=== PATIENT | female | born 1970 | race Caucasian/White ===

== ENCOUNTER 2017-10-26 05:11 | Inpatient (IN) | END 2017-10-31 15:40 | disposition home or self-care (01) | DRG 638 ==

== ENCOUNTER 2018-11-29 21:05 | Emergency (ER) | payer BC ==
[~2018-11-29] VITALS: Wt 60.9 kg
[~2018-11-29 21:05] MED LIST: ATOR20TA38 PO; BLOO-432 MC; LANC1KIT83 MC; LANT3I SC; LEVE750T70 PO; METF500T PO; NEED-135 MC; NOVO3I SC; PHEN100C PO
[2018-11-29 21:47] VITALS: BP 199/79; PULSE 113; RESP 18
[2018-11-30] MEDS ORDERED: NPH10OT RIGHT EAR (00:41)
[2018-11-30] MEDS ORDERED: AZIT250T PO (00:41)
--- NOTE | 2018-11-30 00:43 | ERD ---
ER Documentation Chief Complaint Chief Complaint R EAR PAIN, COUGH X'S 1 DAY HPI 48-year-old female is here with sore throat cough as well as runny nose and right ear pain. Cough is been going on for 3 days but ear pain just began today. Also subjective fever at home. She has been taking Tylenol but it did not help. No bleeding or drainage from the ear. No nausea or vomiting. ROS All systems reviewed and are negative except as per history of present illness. Medications Home Meds Active Scripts Neomycin/Polymyxin/Hydrocort* (Cortisporin* Otic) 10 Ml Susp, 4 DROP RIGHT EAR QID for 7 Days, EA Prov:GENARO BOLTON PA-C 11/30/18 Azithromycin* (Zithromax*) 250 Mg Tablet, 250 MG PO .SolePACK DIRECTED, #6 TAB TAKE 500 MG (2 TABS) THE FIRST DAY THEN 250 MG (1 TAB) DAYS 2-5 Prov:GENARO BOLTON PA-C 11/30/18 Atorvastatin Calcium* (Atorvastatin Calcium*) 20 Mg Tablet, 20 MG PO QHS, #30 TAB Prov:IGNACIO TONY NP 10/31/17 Lancing Device/Lancets (ACCU-CHEK FASTCLIX LANCET KIT) 1 Each Kit, 1 EACH MC, #100 Prov:IGNACIO TONY NP 10/31/17 Blood Glucose Strips-Dispmeter (CampaignerCRMck Blood Glucose System) 1 Each Kit, 1 EACH MC, #100 Prov:IGNACIO TONY NP 10/31/17 [place], Insulin Disposable ([place] Pen Needle) 1 Each Dis.needle, 1 EACH MC, #100 Prov:IGNACIO TONY NP 10/31/17 Metformin Hcl (Glucophage) 500 Mg Tablet, 500 MG PO BID WITH MEALS for 30 Days, #60 TAB Prov:IGNACIO TONY NP 10/31/17 Insulin Glargine* (Lantus*) 100 Unit/Ml Soln, 15 UNIT SC DAILY@20 for 30 Days, #1 VIAL Prov:IGNACIO TONY NP 10/31/17 Insulin Aspart* (Novolog Insulin Pen*) 100 Unit/Ml Soln, 5 UNIT SC WITH MEALS for 30 Days, #1 VIAL Prov:IGNACIO TONY NP 10/31/17 Phenytoin* Sodium Extended (Dilantin*) 100 Mg Capsule, 300 MG PO HS, #30 CAP Prov:IGNACIO TONY [employer] SPECIALIST 10/31/17 Levetiracetam* (Keppra*) 750 Mg Tablet, 750 MG PO BID, #60 TAB Prov:IGNACIO TONY [employer] SPECIALIST 10/31/17 Allergies Allergies: Coded Allergies: No Known Allergy (Unverified , 10/26/17) PMhx/Soc History of Surgery: Yes ( x2) Anesthesia Reaction: No Hx Neurological Disorder: No Hx Respiratory Disorders: No Hx Cardiac Disorders: No Hx Psychiatric Problems: No (PT & SISTER DENY) Hx Miscellaneous Medical Probl: No Hx Alcohol Use: No Hx Substance Use: No Hx Tobacco Use: No FmHx Family History: No diabetes Physical Exam Vitals Vital Signs Date Temp Pulse Resp B/P (MAP) Pulse Ox O2 O2 Flow FiO2 Time Delivery Rate 11/29/18 99.3 113 18 199/79 97 21:47 (119) Physical Exam INITIAL VITAL SIGNS: Reviewed by me GENERAL: Awake, alert and oriented x 4, well appearing, nontoxic, speaking in full sentences. No acute distress HEAD: Atraumatic NECK: Supple. No masses. Full range of motion. No meningismus. No midline tenderness. EYES: EOMI. PERRL. EAR: No tenderness over the mastoids bilaterally. Right tympanic membrane erythematous, right ear canal is edematous with scant exudates, left ear within normal limits NOSE: Normal nose. THROAT: No tonilar erythema or edema. No exudates. Uvula midline. No kissing tonsils. RESPIRATORY: Clear to auscultation bilaterally. Symmetric chest wall rise. No wheezing or rales. No accessory muscle use. CV: Regular rate and rhythm. No murmurs, rubs, or gallops. Procedures/MDM Patient has otitis media/externa. Also URI symptoms. Discharged with a Z-Juventino and Cortisporin eardrops. Patient counseled regarding my diagnostic impression and care plan. Prior to discharge all questions answered. Pt agrees with treatment plan and understands strict return precautions. Pt is instructed to fo llow up with primary care provider within 24-48 hours. Precautionary instructions provided including instructions to return to the ER if not improving or for any worsening or changing symptoms or concerns. Departure Diagnosis: Primary Impression: Otitis externa Additional Impression: Otitis media Condition: Stable Patient Instructions: External Ear Infection (Adult) Additional Instructions: Llame al doctor MAANA y hao hemalatha GUS PARA DENTRO DE 1-2 ORTEGA.Dgale a la secretaria que nosotros le instruimos hacer esta gus.Avise o llame si dorman condicin se empeora antes de la gus. Regresa aqui si peor o no mejor. GENARO BOLTON PA-C Nov 30, 2018 00:43
== END 2018-11-30 00:50 | disposition home or self-care (01) ==
LOC: FTE 21:05
DX: H66.91 Otitis media, unspecified, right ear (principal); H60.91 Unspecified otitis externa, right ear; E11.9 Type 2 diabetes mellitus without complications; Z79.4 Long term (current) use of insulin
CPT/HCPCS: 99283